=== PATIENT | male | born 1970 | race Caucasian/White ===

== ENCOUNTER 2020-01-17 23:46 | Emergency (ER) | payer SELFPAY ==
[2020-01-18 02:22] LABS: ACETAMINOPHEN 0 ug/mL (10-30)
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
== END 2020-01-18 04:37 | disposition home or self-care (01) ==
LOC: JD.ED 23:46
DX: S00.03XA Contusion of scalp, initial encounter (principal); F15.90 Other stimulant use, unspecified, uncomplicated; Z88.0 Allergy status to penicillin; X58.XXXA Exposure to other specified factors, initial encounter
CPT/HCPCS: 36415; 70450; 70450-26; 71045; 71045-26; 80053; 80306; 80307; 83735; 84484; 85025; 93005; 93010; 99282; 99285-25